=== PATIENT | male | born 1965 ===

== ENCOUNTER → 2022-10-07 | Emergency (ER) | payer OTHER ==
[~2022-10-07] VITALS: Ht 175.3 cm; Wt 86.6 kg
[~2022-10-07] MED LIST: ATORVASTATIN CA20 MG PO; BAYER CHILDREN'81 MG PO; HYDROCHLOROTH12.5 MG PO; LEVSIN/SL0.125 MG PO; PROTONIX40 MG PO; TOPROL XL25 M1 PO; ZESTRIL20 MG PO
== END | disposition home or self-care (01) ==
LOC: ER 09:53
DX: S43.491A Other sprain of right shoulder joint, initial encounter (principal); Z88.0 Allergy status to penicillin; E11.9 Type 2 diabetes mellitus without complications; I10 Essential (primary) hypertension; Z96.611 Presence of right artificial shoulder joint